=== PATIENT | female | born 1945 | race Caucasian/White ===

== ENCOUNTER → 2019-06-27 12:59 | Outpatient (BNVA) | payer MEDICARE, OTHER, SELFPAY | PROVIDERS: Family Provider Family Medicine; PCP Family Medicine; Referring Provider Internal Medicine Rheumatology; Visit Provider Internal Medicine Rheumatology | DX: M06.00 Rheumatoid arthritis without rheumatoid factor, unspecified site (principal); Z79.899 Other long term (current) drug therapy | CPT/HCPCS: 36415; 96365; 85025; 96374; A4222; J1745; J7050 ==

== ENCOUNTER 2019-06-27 13:00 | Outpatient (CLI) | payer MEDICARE, OTHER, SELFPAY | END 2019-06-27 13:01 | disposition home or self-care (01) | LOC: RHEOACUTE 07-15 14:36 | PROVIDERS: Family Provider Family Medicine; PCP Family Medicine; Visit Provider Internal Medicine Rheumatology | DX: Z76.89 Persons encountering health services in other specified circumstances (principal) | CPT/HCPCS: J1745; J7050 ==

== ENCOUNTER → 2019-08-27 12:28 | Outpatient (BNVA) | payer MEDICARE, OTHER, SELFPAY | PROVIDERS: Family Provider Family Medicine; PCP Family Medicine; Visit Provider Internal Medicine Rheumatology | DX: Z79.899 Other long term (current) drug therapy (principal); M02.30 Reiter's disease, unspecified site; H20.9 Unspecified iridocyclitis; Z86.19 Personal history of other infectious and parasitic diseases; M06.00 Rheumatoid arthritis without rheumatoid factor, unspecified site | CPT/HCPCS: 85025 ==

== ENCOUNTER 2019-08-27 13:02 | Outpatient (CLI) | payer MEDICARE, OTHER, SELFPAY ==
[2019-08-27 13:15] VITALS: BP 180/87; PULSE 65; RESP 18; TEMP 36.7; O2SAT 95
[2019-08-27 15:15] VITALS: BP 171/75; PULSE 64; TEMP 36.7
--- NOTE | 2019-08-27 15:31 | PC.NURSE ---
Infusion complete. IV DC'd. Site clear. 24g cath intact. Pressure dressing applied.
== END 2019-08-27 13:03 | disposition home or self-care (01) ==
LOC: RHEOACUTE 13:03
PROVIDERS: Family Provider Family Medicine; PCP Family Medicine; Visit Provider Internal Medicine Rheumatology
DX: M06.00 Rheumatoid arthritis without rheumatoid factor, unspecified site (principal); M02.30 Reiter's disease, unspecified site; Z79.899 Other long term (current) drug therapy; H20.9 Unspecified iridocyclitis; Z86.19 Personal history of other infectious and parasitic diseases; M19.90 Unspecified osteoarthritis, unspecified site
CPT/HCPCS: 36415; 80076; 82306; 82565; 85025; 85651; 86140; 86812; 96365; 96366; G0463; J1745; J7050

== ENCOUNTER 2019-10-29 12:47 | Outpatient (CLI) | payer MEDICARE, OTHER, SELFPAY ==
[2019-10-29 13:05] VITALS: BP 160/76; PULSE 71; RESP 16; TEMP 36.7; O2SAT 95
== END 2019-10-29 12:48 | disposition home or self-care (01) ==
LOC: RHEOACUTE 12:50
PROVIDERS: Family Provider Family Medicine; PCP Family Medicine; Visit Provider Internal Medicine Rheumatology
DX: M06.00 Rheumatoid arthritis without rheumatoid factor, unspecified site (principal); Z79.899 Other long term (current) drug therapy; Z11.59 Encounter for screening for other viral diseases; Z72.89 Other problems related to lifestyle
CPT/HCPCS: 36415; 80076; 82565; 85025; 85651; 86140; 86480; 86704; 86803; 87340; 96365; 96366; J1745; J7050

== ENCOUNTER → 2019-12-02 10:53 | Outpatient (BNVA) | payer MEDICARE, OTHER, SELFPAY | PROVIDERS: Family Provider Family Medicine; PCP Family Medicine; Visit Provider Internal Medicine Rheumatology | DX: M06.00 Rheumatoid arthritis without rheumatoid factor, unspecified site (principal); M19.90 Unspecified osteoarthritis, unspecified site; Z79.899 Other long term (current) drug therapy; H20.9 Unspecified iridocyclitis; M02.30 Reiter's disease, unspecified site | CPT/HCPCS: 99214 ==

== ENCOUNTER 2019-12-24 13:02 | Outpatient (CLI) | payer MEDICARE, OTHER, SELFPAY ==
[2019-12-24 13:24] VITALS: BP 154/84; PULSE 70; RESP 16; TEMP 36.6; O2SAT 95
[2019-12-24 15:10] VITALS: BP 155/78; PULSE 66; RESP 16; O2SAT 95
== END 2019-12-24 13:03 | disposition home or self-care (01) ==
LOC: RHEOACUTE 13:03
PROVIDERS: Family Provider Family Medicine; PCP Family Medicine; Visit Provider Internal Medicine Rheumatology
DX: M06.09 Rheumatoid arthritis without rheumatoid factor, multiple sites (principal)
CPT/HCPCS: 96365; 96366; J1745; J7050

== ENCOUNTER 2020-02-18 12:53 | Outpatient (CLI) | payer MEDICARE, OTHER, SELFPAY ==
[2020-02-18 13:02] VITALS: BP 166/87; PULSE 72; RESP 16; TEMP 36.7; O2SAT 97
[2020-02-18 13:41] VITALS: BMI 31.9
[2020-02-18 14:55] VITALS: BP 150/71; PULSE 65; RESP 16; O2SAT 96
--- NOTE | 2020-02-18 15:06 | PC.NURSE ---
HOME MED LIST REVIEWED AND CORRECTED. LIST PROVIDED TO PT
== END 2020-02-18 12:54 | disposition home or self-care (01) ==
LOC: RHEOACUTE 12:55
PROVIDERS: Family Provider Family Medicine; PCP Family Medicine; Visit Provider Internal Medicine Rheumatology
DX: Z79.899 Other long term (current) drug therapy (principal); M06.09 Rheumatoid arthritis without rheumatoid factor, multiple sites
CPT/HCPCS: 80076; 82565; 85025; 85651; 86140; 96365; 96366; J1745; J7050

== ENCOUNTER 2020-04-22 12:43 | Outpatient (CLI) | payer MEDICARE, OTHER, SELFPAY ==
[2020-04-22 12:50] VITALS: BP 151/81; PULSE 69; RESP 16; TEMP 36.8; O2SAT 96
[2020-04-22 13:14] VITALS: BMI 31.9
[2020-04-22 14:34] VITALS: BP 146/78; PULSE 80; RESP 16
== END 2020-04-22 12:44 | disposition home or self-care (01) ==
LOC: RHEOACUTE 12:44
PROVIDERS: Family Provider Family Medicine; PCP Family Medicine; Visit Provider Internal Medicine Rheumatology
DX: M06.09 Rheumatoid arthritis without rheumatoid factor, multiple sites (principal)
CPT/HCPCS: 96365; 96366; J1745; J7050

== ENCOUNTER → 2020-06-03 10:50 | Outpatient (BNVA) | payer MEDICARE, OTHER, SELFPAY | PROVIDERS: Family Provider Family Medicine; PCP Family Medicine; Visit Provider Internal Medicine Rheumatology | DX: M06.00 Rheumatoid arthritis without rheumatoid factor, unspecified site (principal); H20.9 Unspecified iridocyclitis; M02.30 Reiter's disease, unspecified site; M19.90 Unspecified osteoarthritis, unspecified site; Z79.899 Other long term (current) drug therapy | CPT/HCPCS: 99214 ==

== ENCOUNTER 2020-06-24 13:00 | Outpatient (CLI) | payer MEDICARE, OTHER, SELFPAY ==
[2020-06-24 13:10] VITALS: BP 158/82; PULSE 68; RESP 16; TEMP 36.1; O2SAT 97
--- NOTE | 2020-06-24 14:18 | PC.NURSE ---
1325 Labs obtained with IV start
[2020-06-24 14:24] VITALS: BMI 31.6
[2020-06-24 15:41] VITALS: BP 135/79; PULSE 66; RESP 16; O2SAT 98
== END 2020-06-24 13:01 | disposition home or self-care (01) ==
LOC: RHEOACUTE 13:01
PROVIDERS: Family Provider Family Medicine; PCP Family Medicine; Visit Provider Internal Medicine Rheumatology
DX: Z79.899 Other long term (current) drug therapy; M06.09 Rheumatoid arthritis without rheumatoid factor, multiple sites
CPT/HCPCS: 80076; 82565; 85025; 85651; 86140; 96365; 96366; J1745; J7050

== ENCOUNTER 2020-08-19 13:08 | Outpatient (CLI) | payer MEDICARE, OTHER, SELFPAY ==
[2020-08-19 13:45] VITALS: BP 155/79; PULSE 67; RESP 16; TEMP 37.3; O2SAT 96
[2020-08-19 14:08] LABS: Basophils # 0.1 10^3/uL (0.0-0.1); Basophils % 0.7 %; Eosinophils # 0.2 10^3/uL (0.0-0.8); Eosinophils % 3.1 %; Hematocrit 42.9 % (37.0-47.0); Hemoglobin 13.8 g/dL (11.5-15.3); Lymphocytes # 2.7 10^3/uL (0.8-4.8); Lymphocytes % 35.7 %; Mean Corpuscular HGB Conc 32.2 g/dL (30.0-36.0); Mean Corpuscular Hemoglobin 31.9 pg (28.0-34.0); Mean Corpuscular Volume 99.3 fL (81-99); Mean Platelet Volume 10.4 fL (7.4-10.4); Monocytes # 0.6 10^3/uL (0.2-0.9); Monocytes % 8.4 %; Neutrophils # 3.88 10^3/uL (1.8-7.7); Nucleated Red Blood Cells % 0 %; Platelet Count 210 10^3/cmm (130-400); Red Blood Count 4.32 10^6/uL (4.1-5.3); Red Cell Distribution Width 12.7 % (12.1-15.1); White Blood Count 7.5 10^3/uL (4.0-10.0)
[2020-08-19 14:40] LABS: Alanine Aminotransferase 15 U/L (0-33); Albumin Level 3.7 g/dL (3.5-5.2); Alkaline Phosphatase 77 IU/L (35-105); Aspartate Amino Transferase 26 U/L (0-32); C Reactive Protein 13.5 mg/L (0.0-4.9); Globulin 3.9 g/dL (1.3-4.6); Total Bilirubin 0.5 mg/dL (0.15-1.2); Total Protein 7.6 g/dL (6.6-8.7)
== END 2020-08-19 13:09 | disposition home or self-care (01) ==
PROVIDERS: Family Provider Family Medicine; PCP Family Medicine; Visit Provider Internal Medicine Rheumatology
DX: M06.9 Rheumatoid arthritis, unspecified (principal)
CPT/HCPCS: 80076; 82565; 85025; 86140; 96365; J1745; J7050

== ENCOUNTER 2020-10-14 12:42 | Outpatient (CLI) | payer MEDICARE, OTHER, SELFPAY ==
[2020-10-14 13:10] VITALS: BP 131/60; PULSE 84; RESP 16; TEMP 36.3; O2SAT 96
[2020-10-14 14:06] LABS: Basophils # 0.1 10^3/uL (0.0-0.1); Basophils % 0.7 %; Eosinophils # 0.2 10^3/uL (0.0-0.8); Eosinophils % 2.2 %; Hematocrit 42.7 % (37.0-47.0); Hemoglobin 13.5 g/dL (11.5-15.3); Lymphocytes # 2.2 10^3/uL (0.8-4.8); Lymphocytes % 29.9 %; Mean Corpuscular HGB Conc 31.6 g/dL (30.0-36.0); Mean Corpuscular Hemoglobin 31.4 pg (28.0-34.0); Mean Corpuscular Volume 99.3 fL (81-99); Mean Platelet Volume 10.4 fL (7.4-10.4); Monocytes # 0.7 10^3/uL (0.2-0.9); Monocytes % 8.8 %; Neutrophils # 4.29 10^3/uL (1.8-7.7); Neutrophils % 58.3 %; Nucleated Red Blood Cells % 0 %; Platelet Count 241 10^3/cmm (130-400); Red Cell Distribution Width 12.7 % (12.1-15.1); White Blood Count 7.4 10^3/uL (4.0-10.0)
[2020-10-14 14:32] LABS: Alanine Aminotransferase 14 U/L (0-33); Albumin Level 3.9 g/dL (3.5-5.2); Alkaline Phosphatase 77 IU/L (35-105); Aspartate Amino Transferase 26 U/L (0-32); C Reactive Protein 2.5 mg/L (0.0-4.9); Globulin 3.6 g/dL (1.3-4.6); Total Bilirubin 0.7 mg/dL (0.15-1.2); Total Protein 7.5 g/dL (6.6-8.7)
[2020-10-14 14:35] VITALS: BP 131/60; PULSE 65; RESP 16; TEMP 36.3; O2SAT 96
== END 2020-10-14 12:43 | disposition home or self-care (01) ==
PROVIDERS: Family Provider Family Medicine; PCP Family Medicine; Visit Provider Internal Medicine Rheumatology
DX: M06.09 Rheumatoid arthritis without rheumatoid factor, multiple sites (principal); Z79.899 Other long term (current) drug therapy
CPT/HCPCS: 80076; 82565; 85025; 86140; 96365; 96366; J1745; J7050

== ENCOUNTER → 2020-12-02 12:29 | Outpatient (BNVA) | payer MEDICARE, OTHER, SELFPAY | PROVIDERS: Family Provider Family Medicine; PCP Family Medicine; Visit Provider Internal Medicine Rheumatology | DX: M19.90 Unspecified osteoarthritis, unspecified site (principal); H20.9 Unspecified iridocyclitis; Z79.899 Other long term (current) drug therapy; Z96.642 Presence of left artificial hip joint | CPT/HCPCS: 99214 ==

== ENCOUNTER 2020-12-17 12:53 | Outpatient (CLI) | payer MEDICARE, OTHER, SELFPAY ==
[2020-12-17 13:16] VITALS: BP 127/62; PULSE 80; RESP 18; TEMP 36.5; O2SAT 96
[2020-12-17 14:00] LABS: Basophils % 0.4 %; Eosinophils # 0.1 10^3/uL (0.0-0.8); Eosinophils % 1.3 %; Hematocrit 41.9 % (37.0-47.0); Hemoglobin 13.3 g/dL (11.5-15.3); Lymphocytes # 2.9 10^3/uL (0.8-4.8); Lymphocytes % 27.5 %; Mean Corpuscular HGB Conc 31.7 g/dL (30.0-36.0); Mean Corpuscular Hemoglobin 31.8 pg (28.0-34.0); Mean Corpuscular Volume 100.2 fL (81-99); Mean Platelet Volume 10.1 fL (7.4-10.4); Monocytes # 0.9 10^3/uL (0.2-0.9); Monocytes % 8.9 %; Neutrophils # 6.42 10^3/uL (1.8-7.7); Neutrophils % 61.6 %; Nucleated Red Blood Cells % 0 %; Platelet Count 240 10^3/cmm (130-400); Red Blood Count 4.18 10^6/uL (4.1-5.3); Red Cell Distribution Width 13.5 % (12.1-15.1); White Blood Count 10.4 10^3/uL (4.0-10.0)
[2020-12-17 14:17] LABS: Alanine Aminotransferase 22 U/L (0-33); Albumin Level 3.7 g/dL (3.5-5.2); Alkaline Phosphatase 77 IU/L (35-105); Aspartate Amino Transferase 32 U/L (0-32); C Reactive Protein 4.7 mg/L (0.0-4.9); Globulin 3.8 g/dL (1.3-4.6); Total Bilirubin 0.5 mg/dL (0.15-1.2); Total Protein 7.5 g/dL (6.6-8.7)
[2020-12-17 14:30] VITALS: BP 135/72; PULSE 71; RESP 18; TEMP 37; O2SAT 97
== END 2020-12-17 12:54 | disposition home or self-care (01) ==
LOC: ONCMED 12:55
PROVIDERS: Family Provider Family Medicine; PCP Family Medicine; Referring Provider Internal Medicine Rheumatology; Visit Provider Internal Medicine Rheumatology
DX: M06.09 Rheumatoid arthritis without rheumatoid factor, multiple sites (principal)
CPT/HCPCS: 80076; 82565; 85025; 86140; 96365; J1745; J7050

== ENCOUNTER 2021-02-11 12:44 | Outpatient (CLI) | payer MEDICARE, OTHER, SELFPAY ==
[2021-02-11 12:55] VITALS: BP 131/62; PULSE 69; RESP 20; TEMP 36.3; O2SAT 96
[2021-02-11] MEDS: sodium chloride 0.9% 250 ML 75 ML IV (13:39)
[2021-02-11 13:59] LABS: Basophils # 0.1 10^3/uL (0.0-0.1); Basophils % 0.7 %; Eosinophils # 0.2 10^3/uL (0.0-0.8); Eosinophils % 2.5 %; Hematocrit 42.1 % (37.0-47.0); Lymphocytes % 29.4 %; Mean Corpuscular HGB Conc 33.3 g/dL (30.0-36.0); Mean Corpuscular Hemoglobin 32.9 pg (28.0-34.0); Mean Corpuscular Volume 98.8 fl (81-99); Mean Platelet Volume 10.4 fL (7.4-10.4); Monocytes # 0.6 10^3/uL (0.2-0.9); Neutrophils # 3.88 10^3/uL (1.8-7.7); Neutrophils % 58.3 %; Nucleated Red Blood Cells % 0 %; Platelet Count 210 10^3/cmm (130-400); Red Blood Count 4.26 10^6/uL (4.1-5.3); Red Cell Distribution Width 13.7 % (12.1-15.1); White Blood Count 6.7 10^3/uL (4.0-10.0)
[2021-02-11 14:31] LABS: Alanine Aminotransferase 15 U/L (0-33); Albumin Level 3.7 g/dL (3.5-5.2); Alkaline Phosphatase 79 IU/L (35-105); Aspartate Amino Transferase 23 U/L (0-32); Globulin 4.3 g/dL (1.3-4.6); Total Bilirubin 0.5 mg/dL (0.15-1.2)
[2021-02-11 14:51] VITALS: BP 134/78; PULSE 71; RESP 18; TEMP 36.3; O2SAT 96
== END 2021-02-11 12:45 | disposition home or self-care (01) ==
PROVIDERS: PCP Family Medicine; Visit Provider Internal Medicine Rheumatology
DX: M06.09 Rheumatoid arthritis without rheumatoid factor, multiple sites (principal)
CPT/HCPCS: 80076; 82565; 85025; 86140; 96365; J1745; J7050

== ENCOUNTER 2021-04-21 12:42 | Outpatient (CLI) | payer MEDICARE, OTHER, SELFPAY ==
[2021-04-21 12:55] VITALS: BP 125/77; PULSE 68; RESP 18; TEMP 36.3; O2SAT 98
[2021-04-21] MEDS: sodium chloride 0.9% 250 ML 50 ML IV (13:30)
[2021-04-21 13:41] LABS: Basophils % 0.6 %; Eosinophils # 0.1 10^3/uL (0.0-0.8); Eosinophils % 1.9 %; Hematocrit 44.1 % (37.0-47.0); Hemoglobin 14.5 g/dL (11.5-15.3); Lymphocytes # 2.1 10^3/uL (0.8-4.8); Lymphocytes % 32.8 %; Mean Corpuscular HGB Conc 32.9 g/dL (30.0-36.0); Mean Corpuscular Hemoglobin 33.6 pg (28.0-34.0); Mean Corpuscular Volume 102.3 fl (81-99); Mean Platelet Volume 9.5 fL (7.4-10.4); Monocytes # 0.6 10^3/uL (0.2-0.9); Monocytes % 9.6 %; Neutrophils # 3.55 10^3/uL (1.8-7.7); Neutrophils % 54.8 %; Nucleated Red Blood Cells % 0 %; Platelet Count 238 10^3/cmm (130-400); Red Blood Count 4.31 10^6/uL (4.1-5.3); Red Cell Distribution Width 12.4 % (12.1-15.1); White Blood Count 6.5 10^3/uL (4.0-10.0)
[2021-04-21 14:06] LABS: Alanine Aminotransferase 18 U/L (0-33); Albumin Level 3.9 g/dL (3.5-5.2); Alkaline Phosphatase 72 IU/L (35-105); Aspartate Amino Transferase 27 U/L (0-32); C Reactive Protein 1.2 mg/L (0.0-4.9); Globulin 3.8 g/dL (1.3-4.6); Total Bilirubin 0.5 mg/dL (0.15-1.2); Total Protein 7.7 g/dL (6.6-8.7)
[2021-04-21 14:43] VITALS: BP 134/62; PULSE 70; RESP 18; TEMP 36.5; O2SAT 98
== END 2021-04-21 12:43 | disposition home or self-care (01) ==
LOC: ONCMED 12:44
PROVIDERS: PCP Family Medicine; Visit Provider Internal Medicine Rheumatology
DX: M06.09 Rheumatoid arthritis without rheumatoid factor, multiple sites (principal); Z79.899 Other long term (current) drug therapy
CPT/HCPCS: 80076; 82565; 85025; 86140; 96365; J1745; J7050

== ENCOUNTER → 2021-06-07 14:31 | Outpatient (BNVA) | payer MEDICARE, OTHER, SELFPAY | PROVIDERS: PCP Family Medicine; Visit Provider Internal Medicine Rheumatology | DX: M06.00 Rheumatoid arthritis without rheumatoid factor, unspecified site (principal); Z79.899 Other long term (current) drug therapy; H20.023 Recurrent acute iridocyclitis, bilateral; M16.12 Unilateral primary osteoarthritis, left hip; Z96.642 Presence of left artificial hip joint; Z15.89 Genetic susceptibility to other disease; Z86.73 Personal history of transient ischemic attack (TIA), and cerebral infarction without residual deficits; Z71.89 Other specified counseling | CPT/HCPCS: 99214 ==

== ENCOUNTER 2021-06-16 12:41 | Outpatient (CLI) | payer MEDICARE, OTHER, SELFPAY ==
[2021-06-16 12:59] VITALS: BP 157/85; PULSE 62; RESP 18; TEMP 36.2; O2SAT 99
[2021-06-16] MEDS: sodium chloride 0.9% 250 ML 50 ML IV (13:22)
[2021-06-16 13:32] LABS: Basophils % 0.5 %; Eosinophils # 0.1 10^3/uL (0.0-0.8); Eosinophils % 1.7 %; Hematocrit 43.3 % (37.0-47.0); Hemoglobin 14.4 g/dL (11.5-15.3); Lymphocytes # 2.2 10^3/uL (0.8-4.8); Lymphocytes % 29.2 %; Mean Corpuscular HGB Conc 33.3 g/dL (30.0-36.0); Mean Corpuscular Volume 99.1 fl (81-99); Mean Platelet Volume 10.1 fL (7.4-10.4); Monocytes # 0.6 10^3/uL (0.2-0.9); Monocytes % 8.1 %; Neutrophils # 4.59 10^3/uL (1.8-7.7); Neutrophils % 60.2 %; Nucleated Red Blood Cells % 0 %; Platelet Count 246 10^3/cmm (130-400); Red Blood Count 4.37 10^6/uL (4.1-5.3); Red Cell Distribution Width 12.3 % (12.1-15.1); White Blood Count 7.6 10^3/uL (4.0-10.0)
[2021-06-16 13:53] LABS: Alanine Aminotransferase 17 U/L (0-33); Alkaline Phosphatase 77 IU/L (35-105); Aspartate Amino Transferase 29 U/L (0-32); C Reactive Protein 1.8 mg/L (0.0-4.9); Total Bilirubin 0.6 mg/dL (0.15-1.2)
[2021-06-16 14:49] VITALS: BP 153/71; PULSE 61; RESP 18; TEMP 36.3; O2SAT 99
== END 2021-06-16 12:42 | disposition home or self-care (01) ==
LOC: ONCMED 12:59
PROVIDERS: PCP Family Medicine; Visit Provider Internal Medicine Rheumatology
DX: M06.09 Rheumatoid arthritis without rheumatoid factor, multiple sites (principal); Z79.899 Other long term (current) drug therapy
CPT/HCPCS: 80076; 82565; 85025; 86140; 96365; J1745; J7050

== ENCOUNTER 2021-08-16 11:15 | Outpatient (CLI) | payer MEDICARE, OTHER, SELFPAY ==
[2021-08-16 11:32] VITALS: BP 160/85; PULSE 71; RESP 18; TEMP 36.6; O2SAT 99
[2021-08-16] MEDS: sodium chloride 0.9% 250 ML 50 ML IV (11:55)
[2021-08-16 11:59] LABS: Basophils # 0.1 10^3/uL (0.0-0.1); Basophils % 0.8 %; Eosinophils # 0.1 10^3/uL (0.0-0.8); Eosinophils % 1.8 %; Hematocrit 44.8 % (37.0-47.0); Hemoglobin 14.8 g/dL (11.5-15.3); Lymphocytes # 2.1 10^3/uL (0.8-4.8); Lymphocytes % 31.7 %; Mean Corpuscular Hemoglobin 32.2 pg (28.0-34.0); Mean Corpuscular Volume 97.6 fl (81-99); Mean Platelet Volume 9.8 fL (7.4-10.4); Monocytes # 0.6 10^3/uL (0.2-0.9); Monocytes % 8.9 %; Neutrophils # 3.73 10^3/uL (1.8-7.7); Neutrophils % 56.5 %; Nucleated Red Blood Cells % 0 %; Platelet Count 241 10^3/cmm (130-400); Red Blood Count 4.59 10^6/uL (4.1-5.3); Red Cell Distribution Width 12.5 % (12.1-15.1); White Blood Count 6.6 10^3/uL (4.0-10.0)
[2021-08-16 12:37] LABS: Alanine Aminotransferase 20 U/L (0-33); Alkaline Phosphatase 88 IU/L (35-105); Aspartate Amino Transferase 28 U/L (0-32); Globulin 4.3 g/dL (1.3-4.6); Total Bilirubin 0.4 mg/dL (0.15-1.2); Total Protein 8.3 g/dL (6.6-8.7)
[2021-08-16 13:19] VITALS: BP 139/83; PULSE 68; RESP 18; TEMP 36.8; O2SAT 99
== END 2021-08-16 11:16 | disposition home or self-care (01) ==
PROVIDERS: PCP Family Medicine; Referring Provider Internal Medicine Rheumatology; Visit Provider Internal Medicine Medical Oncology
DX: M06.09 Rheumatoid arthritis without rheumatoid factor, multiple sites (principal); Z79.899 Other long term (current) drug therapy
CPT/HCPCS: 80076; 82565; 85025; 86140; 96365; J1745; J7050

== ENCOUNTER 2021-10-11 09:45 | Outpatient (CLI) | payer MEDICARE, OTHER, SELFPAY ==
[2021-10-11 09:57] VITALS: BP 174/87; PULSE 67; RESP 18; TEMP 36.2; O2SAT 98
[2021-10-11 10:17] LABS: Basophils % 0.3 %; Eosinophils # 0.2 10^3/uL (0.0-0.8); Eosinophils % 1.7 %; Hematocrit 43.9 % (37.0-47.0); Hemoglobin 14.3 g/dL (11.5-15.3); Lymphocytes # 2.2 10^3/uL (0.8-4.8); Lymphocytes % 25.2 %; Mean Corpuscular HGB Conc 32.6 g/dL (30.0-36.0); Mean Corpuscular Hemoglobin 32.3 pg (28.0-34.0); Mean Corpuscular Volume 99.1 fl (81-99); Mean Platelet Volume 9.8 fL (7.4-10.4); Monocytes # 0.7 10^3/uL (0.2-0.9); Monocytes % 7.8 %; Neutrophils # 5.73 10^3/uL (1.8-7.7); Neutrophils % 64.7 %; Nucleated Red Blood Cells % 0 %; Platelet Count 216 10^3/cmm (130-400); Red Blood Count 4.43 10^6/uL (4.1-5.3); Red Cell Distribution Width 12.9 % (12.1-15.1); White Blood Count 8.9 10^3/uL (4.0-10.0)
[2021-10-11] MEDS: sodium chloride 0.9% 250 ML 50 ML IV (10:22)
[2021-10-11 10:43] LABS: Alanine Aminotransferase 13 U/L (0-33); Alkaline Phosphatase 88 IU/L (35-105); Aspartate Amino Transferase 27 U/L (0-32); C Reactive Protein 5.2 mg/L (0.0-4.9); Globulin 4.4 g/dL (1.3-4.6); Total Bilirubin 0.5 mg/dL (0.15-1.2); Total Protein 8.4 g/dL (6.6-8.7)
[2021-10-11 11:46] VITALS: BP 168/85; PULSE 64; RESP 18; TEMP 36.3; O2SAT 97
== END 2021-10-11 09:46 | disposition home or self-care (01) ==
PROVIDERS: PCP Family Medicine; Referring Provider Internal Medicine Rheumatology; Visit Provider Internal Medicine Rheumatology
DX: M06.09 Rheumatoid arthritis without rheumatoid factor, multiple sites (principal); Z79.899 Other long term (current) drug therapy
CPT/HCPCS: 80076; 82565; 85025; 86140; 96365; J1745; J7050

== ENCOUNTER → 2021-11-22 12:36 | Outpatient (BNVA) | payer MEDICARE, OTHER, SELFPAY | PROVIDERS: PCP Family Medicine; Visit Provider Internal Medicine Rheumatology | DX: M06.00 Rheumatoid arthritis without rheumatoid factor, unspecified site (principal); H20.9 Unspecified iridocyclitis; Z15.89 Genetic susceptibility to other disease; Z79.899 Other long term (current) drug therapy; Z96.642 Presence of left artificial hip joint; Z86.73 Personal history of transient ischemic attack (TIA), and cerebral infarction without residual deficits; Z71.89 Other specified counseling | CPT/HCPCS: 99214 ==

== ENCOUNTER 2021-12-06 10:48 | Outpatient (CLI) | payer MEDICARE, OTHER, SELFPAY ==
[2021-12-06 10:58] VITALS: BP 160/83; PULSE 71; RESP 18; TEMP 36.3; O2SAT 96
[2021-12-06 11:31] LABS: Basophils % 0.1 %; Eosinophils # 0.1 10^3/uL (0.0-0.8); Eosinophils % 0.4 %; Hematocrit 44.4 % (37.0-47.0); Hemoglobin 14.6 g/dL (11.5-15.3); Lymphocytes # 3.2 10^3/uL (0.8-4.8); Lymphocytes % 26.7 %; Mean Corpuscular HGB Conc 32.9 g/dL (30.0-36.0); Mean Corpuscular Volume 97.4 fl (81-99); Monocytes # 1.1 10^3/uL (0.2-0.9); Monocytes % 9.2 %; Neutrophils # 7.54 10^3/uL (1.8-7.7); Neutrophils % 63.3 %; Nucleated Red Blood Cells % 0 %; Platelet Count 266 10^3/cmm (130-400); Red Blood Count 4.56 10^6/uL (4.1-5.3); Red Cell Distribution Width 13.1 % (12.1-15.1); White Blood Count 11.9 10^3/uL (4.0-10.0)
[2021-12-06] MEDS: sodium chloride 0.9% 250 ML 50 ML IV (11:31)
[2021-12-06 11:40] LABS: Alanine Aminotransferase 33 U/L (0-33); Albumin Level 3.9 g/dL (3.5-5.2); Alkaline Phosphatase 74 IU/L (35-105); Aspartate Amino Transferase 33 U/L (0-32); Globulin 4.1 g/dL (1.3-4.6); Total Bilirubin 0.3 mg/dL (0.15-1.2)
[2021-12-06 12:21] LABS: Erythrocyte Sedimentation Rate 14 mm/hr (0-15)
[2021-12-06 12:53] VITALS: BP 150/76; PULSE 62; RESP 18; TEMP 36.7; O2SAT 98
== END 2021-12-06 10:49 | disposition home or self-care (01) ==
PROVIDERS: PCP Family Medicine; Referring Provider Internal Medicine Rheumatology; Visit Provider Internal Medicine Rheumatology
DX: M06.9 Rheumatoid arthritis, unspecified (principal); M45.9 Ankylosing spondylitis of unspecified sites in spine
CPT/HCPCS: 80076; 82565; 85025; 85651; 96365; J1745; J7050

== ENCOUNTER 2022-01-31 12:55 | Outpatient (CLI) | payer MEDICARE, OTHER, SELFPAY ==
[2022-01-31 13:06] VITALS: BP 135/73; PULSE 68; RESP 18; TEMP 36.3; O2SAT 96
[2022-01-31 13:31] LABS: Basophils % 0.5 %; Eosinophils # 0.2 10^3/uL (0.0-0.8); Eosinophils % 1.8 %; Hematocrit 39.9 % (37.0-47.0); Hemoglobin 13.2 g/dL (11.5-15.3); Lymphocytes # 2.3 10^3/uL (0.8-4.8); Lymphocytes % 28.4 %; Mean Corpuscular HGB Conc 33.1 g/dL (30.0-36.0); Mean Corpuscular Hemoglobin 32.8 pg (28.0-34.0); Mean Platelet Volume 9.7 fL (7.4-10.4); Monocytes # 0.7 10^3/uL (0.2-0.9); Monocytes % 7.9 %; Neutrophils # 5.05 10^3/uL (1.8-7.7); Neutrophils % 61.2 %; Nucleated Red Blood Cells % 0 %; Platelet Count 277 10^3/cmm (130-400); Red Blood Count 4.03 10^6/uL (4.1-5.3); Red Cell Distribution Width 12.7 % (12.1-15.1); White Blood Count 8.3 10^3/uL (4.0-10.0)
[2022-01-31] MEDS: sodium chloride 0.9% 250 ML 50 ML IV (13:35)
[2022-01-31 13:39] LABS: Erythrocyte Sedimentation Rate 35 mm/hr (0-15)
[2022-01-31 13:58] LABS: Alanine Aminotransferase 13 U/L (0-33); Albumin Level 3.7 g/dL (3.5-5.2); Alkaline Phosphatase 77 U/L (35-105); Aspartate Amino Transferase 25 U/L (0-32); Globulin 4.3 g/dL (1.3-4.6); Total Bilirubin 0.3 mg/dL (0.15-1.2)
[2022-01-31 14:57] VITALS: BP 152/77; PULSE 63; RESP 18; TEMP 36.2; O2SAT 96
== END 2022-01-31 12:56 | disposition home or self-care (01) ==
PROVIDERS: PCP Family Medicine; Visit Provider Internal Medicine Rheumatology
DX: M06.9 Rheumatoid arthritis, unspecified (principal); Z79.899 Other long term (current) drug therapy
CPT/HCPCS: 80076; 82565; 85025; 85651; 96365; J1745; J7050

== ENCOUNTER 2022-03-28 12:40 | Outpatient (CLI) | payer MEDICARE, OTHER, SELFPAY ==
[2022-03-28 12:53] VITALS: BP 143/72; PULSE 77; RESP 18; TEMP 36.4; O2SAT 96
[2022-03-28 13:10] LABS: Basophils % 0.2 %; Eosinophils # 0.1 10^3/uL (0.0-0.8); Eosinophils % 0.5 %; Hematocrit 38.9 % (37.0-47.0); Hemoglobin 12.7 g/dL (11.5-15.3); Lymphocytes % 31.7 %; Mean Corpuscular HGB Conc 32.6 g/dL (30.0-36.0); Mean Corpuscular Hemoglobin 32.2 pg (28.0-34.0); Mean Corpuscular Volume 98.7 fl (81-99); Monocytes % 6.1 %; Neutrophils # 9.66 10^3/uL (1.8-7.7); Neutrophils % 60.9 %; Nucleated Red Blood Cells % 0 %; Platelet Count 365 10^3/cmm (130-400); Red Blood Count 3.94 10^6/uL (4.1-5.3); Red Cell Distribution Width 12.6 % (12.1-15.1); White Blood Count 15.8 10^3/uL (4.0-10.0)
[2022-03-28] MEDS: sodium chloride 0.9% 250 ML 50 ML IV (13:17)
[2022-03-28 13:36] LABS: Alanine Aminotransferase 20 U/L (0-33); Albumin Level 3.2 g/dL (3.5-5.2); Alkaline Phosphatase 72 U/L (35-105); Globulin 4.4 g/dL (1.3-4.6); Total Bilirubin 0.2 mg/dL (0.15-1.2); Total Protein 7.6 g/dL (6.6-8.7)
[2022-03-28 13:37] LABS: Erythrocyte Sedimentation Rate 39 mm/hr (0-15)
[2022-03-28 13:39] LABS: Aspartate Amino Transferase 24 U/L (0-32)
[2022-03-28 15:02] VITALS: BP 148/77; PULSE 69; RESP 18; TEMP 36.8; O2SAT 96
== END 2022-03-28 12:41 | disposition home or self-care (01) ==
PROVIDERS: PCP Family Medicine; Visit Provider Internal Medicine Rheumatology
DX: M06.9 Rheumatoid arthritis, unspecified (principal)
CPT/HCPCS: 80076; 82565; 85025; 85651; 96365; A4222; J1745; J7050

== ENCOUNTER 2022-05-23 12:55 | Outpatient (CLI) | payer MEDICARE, OTHER, SELFPAY ==
[2022-05-23 13:34] VITALS: BP 107/64; PULSE 77; RESP 18; TEMP 37.2; O2SAT 95
[2022-05-23] MEDS: sodium chloride 0.9% 250 ML 50 ML IV (13:47)
[2022-05-23 13:52] LABS: Basophils % 0.1 %; Hematocrit 33.8 % (37.0-47.0); Hemoglobin 10.6 g/dL (11.5-15.3); Lymphocytes # 0.7 10^3/uL (0.8-4.8); Lymphocytes % 5.6 %; Mean Corpuscular HGB Conc 31.4 g/dL (30.0-36.0); Mean Corpuscular Hemoglobin 30.4 pg (28.0-34.0); Mean Corpuscular Volume 96.8 fl (81-99); Mean Platelet Volume 9.1 fL (7.4-10.4); Monocytes # 0.6 10^3/uL (0.2-0.9); Monocytes % 5.1 %; Neutrophils % 88.7 %; Nucleated Red Blood Cells % 0 %; Platelet Count 411 10^3/cmm (130-400); Red Blood Count 3.49 10^6/uL (4.1-5.3); Red Cell Distribution Width 13.7 % (12.1-15.1); White Blood Count 12.1 10^3/uL (4.0-10.0)
[2022-05-23 14:09] LABS: Alanine Aminotransferase 23 U/L (0-33); Albumin Level 2.9 g/dL (3.5-5.2); Alkaline Phosphatase 72 U/L (35-105); Aspartate Amino Transferase 25 U/L (0-32); C Reactive Protein 170.9 mg/L (0.0-4.9); Globulin 5.1 g/dL (1.3-4.6); Total Bilirubin 0.4 mg/dL (0.15-1.2)
[2022-05-23 15:36] VITALS: BP 107/63; PULSE 70; RESP 18; TEMP 36.7; O2SAT 93
== END 2022-05-23 12:56 | disposition home or self-care (01) ==
LOC: ONCMED 12:56
PROVIDERS: PCP Family Medicine; Visit Provider Internal Medicine Rheumatology
DX: M06.9 Rheumatoid arthritis, unspecified (principal)
CPT/HCPCS: 80076; 82565; 85025; 86140; 96365; A4222; J1745; J7050

== ENCOUNTER 2022-07-04 12:48 | Outpatient (CLI) | payer MEDICARE, OTHER, SELFPAY ==
[2022-07-04 13:11] VITALS: BP 141/76; PULSE 70; RESP 18; TEMP 36.3; O2SAT 99
[2022-07-04 13:40] LABS: Basophils % 0.5 %; Eosinophils # 0.1 10^3/uL (0.0-0.8); Eosinophils % 1.2 %; Hematocrit 38.5 % (37.0-47.0); Hemoglobin 12.3 g/dL (11.5-15.3); Lymphocytes # 3.5 10^3/uL (0.8-4.8); Lymphocytes % 40.5 %; Mean Corpuscular HGB Conc 31.9 g/dL (30.0-36.0); Mean Corpuscular Hemoglobin 31.5 pg (28.0-34.0); Mean Corpuscular Volume 98.5 fl (81-99); Mean Platelet Volume 9.9 fL (7.4-10.4); Monocytes # 0.8 10^3/uL (0.2-0.9); Monocytes % 9.6 %; Neutrophils # 4.12 10^3/uL (1.8-7.7); Neutrophils % 48.1 %; Nucleated Red Blood Cells % 0 %; Platelet Count 275 10^3/cmm (130-400); Red Blood Count 3.91 10^6/uL (4.1-5.3); Red Cell Distribution Width 15.2 % (12.1-15.1); White Blood Count 8.6 10^3/uL (4.0-10.0)
[2022-07-04] MEDS: sodium chloride 0.9% 250 ML 50 ML IV (13:43)
[2022-07-04 13:47] LABS: Erythrocyte Sedimentation Rate 31 mm/hr (0-15)
[2022-07-04 14:03] LABS: Alanine Aminotransferase 10 U/L (0-33); Albumin Level 3.8 g/dL (3.5-5.2); Alkaline Phosphatase 77 U/L (35-105); Aspartate Amino Transferase 23 U/L (0-32); Globulin 4.3 g/dL (1.3-4.6); Total Bilirubin 0.4 mg/dL (0.15-1.2); Total Protein 8.1 g/dL (6.6-8.7)
--- NOTE | 2022-07-04 14:23 | PC.NURSE ---
Patient presented to the clinic for her Remicade infusion. She stated that she was recovering from a recent UTI, and that she had taken her last dose of antibiotics today. I spoke with Dr. Cabral's office, and per their office, if patient is asymptomatic, we may proceed with her infusion. She states that she is asymptomatic today. We will proceed with infusion. dh
[2022-07-04 15:10] VITALS: BP 162/76; PULSE 85; RESP 18; TEMP 36.4; O2SAT 99
== END 2022-07-04 12:49 | disposition home or self-care (01) ==
LOC: ONCMED 12:48
PROVIDERS: PCP Family Medicine; Visit Provider Internal Medicine Rheumatology
DX: M06.9 Rheumatoid arthritis, unspecified (principal); Z79.899 Other long term (current) drug therapy
CPT/HCPCS: 80076; 82565; 85025; 85651; 96365; A4222; J1745; J7050

== ENCOUNTER 2022-08-15 12:41 | Oncology outpatient (recurring) (ONCR) | payer MEDICARE, OTHER, SELFPAY ==
[2022-08-15 13:11] LABS: Basophils % 0.6 %; Eosinophils # 0.1 10^3/uL (0.0-0.8); Eosinophils % 1.5 %; Hematocrit 39.6 % (37.0-47.0); Hemoglobin 12.7 g/dL (11.5-15.3); Lymphocytes # 2.9 10^3/uL (0.8-4.8); Lymphocytes % 40.4 %; Mean Corpuscular HGB Conc 32.1 g/dL (30.0-36.0); Mean Corpuscular Hemoglobin 31.4 pg (28.0-34.0); Mean Corpuscular Volume 97.8 fl (81-99); Mean Platelet Volume 10.2 fL (7.4-10.4); Monocytes # 0.6 10^3/uL (0.2-0.9); Monocytes % 8.7 %; Neutrophils # 3.45 10^3/uL (1.8-7.7); Neutrophils % 48.7 %; Nucleated Red Blood Cells % 0 %; Platelet Count 234 10^3/cmm (130-400); Red Blood Count 4.05 10^6/uL (4.1-5.3); Red Cell Distribution Width 14.2 % (12.1-15.1); White Blood Count 7.1 10^3/uL (4.0-10.0)
[2022-08-15 13:12] VITALS: BP 113/73; PULSE 70; RESP 18; TEMP 36.1; O2SAT 95
[2022-08-15 13:14] LABS: Erythrocyte Sedimentation Rate 17 mm/hr (0-15)
[2022-08-15] MEDS: sodium chloride 0.9% 250 ML 50 ML IV (13:24)
[2022-08-15 13:35] LABS: Alanine Aminotransferase 14 U/L (0-33); Albumin Level 3.7 g/dL (3.5-5.2); Alkaline Phosphatase 73 U/L (35-105); Aspartate Amino Transferase 28 U/L (0-32); Globulin 3.9 g/dL (1.3-4.6); Total Bilirubin 0.4 mg/dL (0.15-1.2); Total Protein 7.6 g/dL (6.6-8.7)
[2022-08-15 14:57] VITALS: BP 159/84; PULSE 67; RESP 18; TEMP 36.6; O2SAT 97
== END 2022-08-16 23:59 | disposition home or self-care (01) ==
PROVIDERS: Internal Medicine Rheumatology; PCP Family Medicine; Visit Provider Family Medicine
DX: M06.9 Rheumatoid arthritis, unspecified (principal); Z79.899 Other long term (current) drug therapy
CPT/HCPCS: 80076; 82565; 85025; 85651; 96365; J1745; J7050

== ENCOUNTER 2022-09-26 12:40 | Oncology outpatient (recurring) (ONCR) | payer MEDICARE, OTHER, SELFPAY ==
[2022-09-26 13:07] VITALS: BP 138/67; PULSE 63; RESP 18; TEMP 36.8; O2SAT 98
[2022-09-26 13:32] LABS: Basophils % 0.5 %; Eosinophils # 0.1 10^3/uL (0.0-0.8); Eosinophils % 1.5 %; Hematocrit 40.2 % (37.0-47.0); Hemoglobin 13.1 g/dL (11.5-15.3); Lymphocytes # 2.6 10^3/uL (0.8-4.8); Lymphocytes % 34.9 %; Mean Corpuscular HGB Conc 32.6 g/dL (30.0-36.0); Mean Corpuscular Hemoglobin 31.6 pg (28.0-34.0); Mean Corpuscular Volume 97.1 fl (81-99); Mean Platelet Volume 10.1 fL (7.4-10.4); Monocytes # 0.6 10^3/uL (0.2-0.9); Monocytes % 7.7 %; Neutrophils # 4.15 10^3/uL (1.8-7.7); Neutrophils % 55.1 %; Nucleated Red Blood Cells % 0 %; Platelet Count 221 10^3/cmm (130-400); Red Blood Count 4.14 10^6/uL (4.1-5.3); Red Cell Distribution Width 12.9 % (12.1-15.1); White Blood Count 7.5 10^3/uL (4.0-10.0)
[2022-09-26 13:43] LABS: Alanine Aminotransferase 15 U/L (0-33); Albumin Level 3.7 g/dL (3.5-5.2); Alkaline Phosphatase 64 U/L (35-105); Aspartate Amino Transferase 25 U/L (0-32); Blood Urea Nitrogen 20 mg/dL (8-23); Carbon Dioxide 28 mmol/L (22-29); Chloride 99 mmol/L (98-107); Creatinine Clr Calc Pharmacy 55.5702; Globulin 3.9 g/dL (1.3-4.6); Glucose 79 mg/dL (65-115); Osmolality Calculated 286 mOsm/kg (285-295); Sodium 137 mmol/L (136-145); Total Bilirubin 0.3 mg/dL (0.15-1.2); Total Protein 7.6 g/dL (6.6-8.7)
[2022-09-26 14:07] LABS: Anion Gap 13.6 (5-19); Potassium 3.6 mmol/L (3.5-5.1)
[2022-09-26 14:57] VITALS: BP 146/68; PULSE 79; RESP 18; TEMP 36.6; O2SAT 97
[2022-09-28 10:45] LABS: Erythrocyte Sedimentation Rate 19 mm/hr (0-15)
== END 2022-10-16 23:59 | disposition home or self-care (01) ==
PROVIDERS: Internal Medicine Rheumatology; PCP Family Medicine; Visit Provider Family Medicine
DX: M06.9 Rheumatoid arthritis, unspecified (principal)
CPT/HCPCS: 80053; 85025; 85651; 96365; 96413; J1745; J7050

== ENCOUNTER 2022-11-21 13:08 | Oncology outpatient (recurring) (ONCR) | payer MEDICARE, OTHER, SELFPAY ==
[2022-11-21 13:28] VITALS: BMI 28.4
[2022-11-21 13:59] LABS: Basophils # 0.1 10^3/uL (0.0-0.1); Basophils % 0.8 %; Eosinophils # 0.1 10^3/uL (0.0-0.8); Eosinophils % 1.8 %; Hematocrit 38.1 % (37.0-47.0); Hemoglobin 12.5 g/dL (11.5-15.3); Lymphocytes # 2.2 10^3/uL (0.8-4.8); Lymphocytes % 33.5 %; Mean Corpuscular HGB Conc 32.8 g/dL (30.0-36.0); Mean Corpuscular Hemoglobin 32.1 pg (28.0-34.0); Mean Corpuscular Volume 97.9 fl (81-99); Monocytes # 0.6 10^3/uL (0.2-0.9); Monocytes % 9.4 %; Neutrophils # 3.61 10^3/uL (1.8-7.7); Neutrophils % 54.3 %; Nucleated Red Blood Cells % 0 %; Platelet Count 196 10^3/cmm (130-400); Red Blood Count 3.89 10^6/uL (4.1-5.3); Red Cell Distribution Width 13.2 % (12.1-15.1); White Blood Count 6.6 10^3/uL (4.0-10.0)
[2022-11-21 14:11] LABS: Erythrocyte Sedimentation Rate 15 mm/hr (0-15)
[2022-11-21 14:14] LABS: Alanine Aminotransferase 12 U/L (0-33); Albumin Level 3.8 g/dL (3.5-5.2); Alkaline Phosphatase 64 U/L (35-105); Aspartate Amino Transferase 27 U/L (0-32); Globulin 3.5 g/dL (1.3-4.6); Total Bilirubin 0.4 mg/dL (0.15-1.2); Total Protein 7.3 g/dL (6.6-8.7)
[2022-11-21 14:20] VITALS: BP 145/75; PULSE 61; RESP 16; TEMP 36.7; O2SAT 98
[2022-11-21 15:46] VITALS: BP 163/87; PULSE 74; RESP 18; TEMP 36.3; O2SAT 100
== END 2022-12-16 23:59 | disposition home or self-care (01) ==
PROVIDERS: Internal Medicine Rheumatology; PCP Family Medicine; Visit Provider Family Medicine
DX: M06.9 Rheumatoid arthritis, unspecified (principal)
CPT/HCPCS: 80076; 82565; 85025; 85651; 96365; J1745; J7050

== ENCOUNTER → 2022-11-28 12:29 | Outpatient (BNVA) | payer MEDICARE, OTHER, SELFPAY | PROVIDERS: PCP Family Medicine; Visit Provider Internal Medicine | DX: R07.9 Chest pain, unspecified (principal); I34.0 Nonrheumatic mitral (valve) insufficiency; I50.30 Unspecified diastolic (congestive) heart failure | CPT/HCPCS: 93005; 99204 ==

== ENCOUNTER 2023-01-16 13:02 | Oncology outpatient (recurring) (ONCR) | payer MEDICARE, OTHER, SELFPAY ==
[2023-01-16 13:24] VITALS: BP 145/68; PULSE 62; RESP 18; TEMP 36; O2SAT 95
[2023-01-16 14:02] LABS: Basophils % 0.5 %; Eosinophils # 0.2 10^3/uL (0.0-0.8); Eosinophils % 1.9 %; Hemoglobin 13.1 g/dL (11.5-15.3); Lymphocytes # 2.8 10^3/uL (0.8-4.8); Lymphocytes % 36.2 %; Mean Corpuscular HGB Conc 32.8 g/dL (30.0-36.0); Mean Corpuscular Hemoglobin 32.1 pg (28.0-34.0); Mean Platelet Volume 10.4 fL (7.4-10.4); Monocytes # 0.7 10^3/uL (0.2-0.9); Monocytes % 8.8 %; Neutrophils # 4.02 10^3/uL (1.8-7.7); Neutrophils % 52.3 %; Nucleated Red Blood Cells % 0 %; Platelet Count 203 10^3/cmm (130-400); Red Blood Count 4.08 10^6/uL (4.1-5.3); Red Cell Distribution Width 13.1 % (12.1-15.1); White Blood Count 7.7 10^3/uL (4.0-10.0)
[2023-01-16 14:07] LABS: Erythrocyte Sedimentation Rate 11 mm/hr (0-15)
[2023-01-16 15:00] VITALS: BP 162/79; PULSE 64; RESP 18; TEMP 36; O2SAT 98
--- NOTE | 2023-01-16 15:29 | PC.NURSE ---
Patient refused all premeds and primary in line of normal saline.
[2023-01-16 15:50] LABS: Alanine Aminotransferase 12 U/L (0-33); Albumin Level 3.7 g/dL (3.5-5.2); Alkaline Phosphatase 68 U/L (35-105); Aspartate Amino Transferase 25 U/L (0-32); Globulin 3.4 g/dL (1.3-4.6); Total Bilirubin 0.5 mg/dL (0.15-1.2); Total Protein 7.1 g/dL (6.6-8.7)
== END 2023-01-16 23:59 | disposition home or self-care (01) ==
PROVIDERS: Internal Medicine Rheumatology; PCP Family Medicine; Visit Provider Family Medicine
DX: M19.90 Unspecified osteoarthritis, unspecified site (principal); M06.9 Rheumatoid arthritis, unspecified; Z79.899 Other long term (current) drug therapy
CPT/HCPCS: 80076; 82565; 85025; 85651; 96413; A4222; J1745; J7050

== ENCOUNTER → 2023-02-08 14:37 | Outpatient (BNVA) | payer MEDICARE, OTHER, SELFPAY | PROVIDERS: PCP Family Medicine; Visit Provider Internal Medicine Rheumatology | DX: H20.9 Unspecified iridocyclitis (principal); Z79.899 Other long term (current) drug therapy; Z71.89 Other specified counseling | CPT/HCPCS: 99214 ==

== ENCOUNTER 2023-03-14 12:54 | Oncology outpatient (recurring) (ONCR) | payer MEDICARE, OTHER, SELFPAY ==
[2023-03-14 13:20] VITALS: BP 158/67; PULSE 70; RESP 17; TEMP 37.1; O2SAT 97
[2023-03-14 13:33] LABS: Basophils % 0.4 %; Eosinophils # 0.4 10^3/uL (0.0-0.8); Hematocrit 41.5 % (36-47); Lymphocytes # 2.2 10^3/uL (0.8-4.8); Mean Corpuscular HGB Conc 32.8 g/dL (30-55); Mean Corpuscular Hemoglobin 32.1 pg (27-33); Mean Corpuscular Volume 97.9 fl (85-98); Mean Platelet Volume 9.8 fL (7.4-10.4); Monocytes # 0.7 10^3/uL (0.2-0.9); Monocytes % 7.4 %; Neutrophils # 5.84 10^3/uL (1.8-7.7); Nucleated Red Blood Cells % 0 %; Platelet Count 231 10^3/cmm (157-399); Red Blood Count 4.24 10^6/uL (3.85-5.65); Red Cell Distribution Width 13.1 % (12.1-15.1); White Blood Count 9.15 10^3/uL (3.29-11.43)
[2023-03-14 13:54] LABS: Erythrocyte Sedimentation Rate 19 mm/hr (0-15)
[2023-03-14 14:01] LABS: Alanine Aminotransferase 14 U/L (0-33); Albumin Level 3.9 g/dL (3.5-5.2); Alkaline Phosphatase 70 U/L (35-105); Aspartate Amino Transferase 26 U/L (0-32); Globulin 3.9 g/dL (1.3-4.6); Total Bilirubin 0.5 mg/dL (0.15-1.2); Total Protein 7.8 g/dL (6.6-8.7)
[2023-03-14 15:24] VITALS: BP 144/75; PULSE 68; RESP 16; TEMP 36.6; O2SAT 98
== END 2023-03-18 23:59 | disposition home or self-care (01) ==
PROVIDERS: Internal Medicine Rheumatology; PCP Family Medicine; Visit Provider Family Medicine
DX: M06.9 Rheumatoid arthritis, unspecified (principal); Z53.9 Procedure and treatment not carried out, unspecified reason
CPT/HCPCS: 80076; 82565; 85025; 85651; 86140; 96413; J7050; Q5104

== ENCOUNTER 2023-05-09 12:50 | Oncology outpatient (recurring) (ONCR) | payer MEDICARE, OTHER, SELFPAY ==
[2023-05-09 13:20] LABS: Basophils % 0.5 %; Eosinophils # 0.2 10^3/uL (0.0-0.8); Hematocrit 42.2 % (36-47); Lymphocytes % 36.6 %; Mean Corpuscular HGB Conc 32.9 g/dL (30-55); Mean Corpuscular Hemoglobin 32.6 pg (27-33); Mean Corpuscular Volume 99.1 fl (85-98); Mean Platelet Volume 9.6 fL (7.4-10.4); Monocytes # 0.7 10^3/uL (0.2-0.9); Monocytes % 9.1 %; Neutrophils # 4.19 10^3/uL (1.8-7.7); Neutrophils % 51.7 %; Nucleated Red Blood Cells % 0 %; Platelet Count 224 10^3/cmm (157-399); Red Blood Count 4.26 10^6/uL (3.85-5.65); Red Cell Distribution Width 12.9 % (12.1-15.1); White Blood Count 8.11 10^3/uL (3.29-11.43)
[2023-05-09 13:46] LABS: Alanine Aminotransferase 15 U/L (0-33); Alkaline Phosphatase 73 U/L (35-105); Aspartate Amino Transferase 27 U/L (0-32); Globulin 4.1 g/dL (1.3-4.6); Total Bilirubin 0.4 mg/dL (0.15-1.2); Total Protein 8.1 g/dL (6.6-8.7)
[2023-05-09 13:47] LABS: Erythrocyte Sedimentation Rate 8 mm/hr (0-15)
[2023-05-09 15:10] VITALS: BP 158/76; PULSE 70; RESP 17; TEMP 36.2; O2SAT 97
== END 2023-05-18 23:59 | disposition home or self-care (01) ==
LOC: ONCMED 12:50
PROVIDERS: Internal Medicine Rheumatology; PCP Family Medicine; Visit Provider Family Medicine
DX: M06.9 Rheumatoid arthritis, unspecified (principal)
CPT/HCPCS: 80076; 82565; 85025; 85651; 86140; 96413; J7050; Q5104

== ENCOUNTER 2023-07-05 12:51 | Oncology outpatient (recurring) (ONCR) | payer MEDICARE, SELFPAY ==
[2023-07-05 13:02] VITALS: BP 138/71; PULSE 73; RESP 17; TEMP 35.8; O2SAT 98
[2023-07-05 13:29] VITALS: BMI 28.7
[2023-07-05 13:34] LABS: Basophils # 0.1 10^3/uL (0.0-0.1); Basophils % 0.7 %; Eosinophils # 0.1 10^3/uL (0.0-0.8); Eosinophils % 1.8 %; Hematocrit 43.2 % (36-47); Lymphocytes # 2.4 10^3/uL (0.8-4.8); Lymphocytes % 32.3 %; Mean Corpuscular HGB Conc 33.1 g/dL (30-55); Mean Corpuscular Hemoglobin 32.6 pg (27-33); Mean Corpuscular Volume 98.4 fl (85-98); Mean Platelet Volume 9.9 fL (7.4-10.4); Monocytes # 0.5 10^3/uL (0.2-0.9); Monocytes % 7.1 %; Neutrophils # 4.23 10^3/uL (1.8-7.7); Nucleated Red Blood Cells % 0 %; Platelet Count 225 10^3/cmm (157-399); Red Blood Count 4.39 10^6/uL (3.85-5.65); Red Cell Distribution Width 12.4 % (12.1-15.1)
[2023-07-05 13:42] LABS: Erythrocyte Sedimentation Rate 10 mm/hr (0-15)
[2023-07-05 13:44] LABS: Alanine Aminotransferase 15 U/L (0-33); Albumin Level 3.9 g/dL (3.5-5.2); Alkaline Phosphatase 73 U/L (35-105); Aspartate Amino Transferase 27 U/L (0-32); Globulin 4.2 g/dL (1.3-4.6); Total Bilirubin 0.5 mg/dL (0.15-1.2); Total Protein 8.1 g/dL (6.6-8.7)
[2023-07-05 15:25] VITALS: BP 137/79; PULSE 75; RESP 17; TEMP 36.4; O2SAT 93
== END 2023-07-19 23:59 | disposition home or self-care (01) ==
PROVIDERS: Internal Medicine Rheumatology; PCP Family Medicine; Visit Provider Family Medicine
DX: M06.00 Rheumatoid arthritis without rheumatoid factor, unspecified site (principal); Z53.9 Procedure and treatment not carried out, unspecified reason
CPT/HCPCS: 80076; 82565; 85025; 85651; 86140; 96365; J7050; Q5104

== ENCOUNTER → 2023-08-28 10:01 | Outpatient (BNVA) | payer MEDICARE, SELFPAY | PROVIDERS: PCP Family Medicine; Visit Provider Nurse Practitioner Family | DX: I34.0 Nonrheumatic mitral (valve) insufficiency (principal) | CPT/HCPCS: 99214 ==

== ENCOUNTER 2023-08-30 11:53 | Oncology outpatient (recurring) (ONCR) | payer MEDICARE, SELFPAY ==
[2023-08-30] MEDS: INFLIXIMAB AXXQ IV (12:55)
[2023-08-30] MEDS: SODIUM CHLORIDE 0.9% IV (12:55)
[2023-08-30 13:09] VITALS: BP 114/68; PULSE 63; TEMP 36.2; O2SAT 90
[2023-08-30 13:11] LABS: Basophils % 0.3 %; Eosinophils # 0.1 10^3/uL (0.0-0.8); Eosinophils % 1.9 %; Hematocrit 39.5 % (36-47); Lymphocytes # 2.5 10^3/uL (0.8-4.8); Lymphocytes % 38.3 %; Mean Corpuscular HGB Conc 33.4 g/dL (30-55); Mean Corpuscular Volume 98.8 fl (85-98); Mean Platelet Volume 9.8 fL (7.4-10.4); Monocytes # 0.6 10^3/uL (0.2-0.9); Monocytes % 9.7 %; Neutrophils # 3.17 10^3/uL (1.8-7.7); Neutrophils % 49.6 %; Nucleated Red Blood Cells % 0 %; Platelet Count 217 10^3/cmm (157-399); Red Cell Distribution Width 12.9 % (12.1-15.1); White Blood Count 6.39 10^3/uL (3.29-11.43)
[2023-08-30 13:23] LABS: Erythrocyte Sedimentation Rate 9 mm/hr (0-15)
[2023-08-30 13:37] LABS: Alanine Aminotransferase 14 U/L (0-33); Albumin Level 3.6 g/dL (3.5-5.2); Alkaline Phosphatase 61 U/L (35-105); Aspartate Amino Transferase 29 U/L (0-32); Globulin 3.4 g/dL (1.3-4.6); Total Bilirubin 0.6 mg/dL (0.15-1.2)
[2023-08-30 14:01] VITALS: BP 144/69; PULSE 58; TEMP 36.1; O2SAT 90
== END 2023-09-17 23:59 | disposition home or self-care (01) ==
LOC: ONCMED 11:54
PROVIDERS: Internal Medicine Rheumatology; PCP Family Medicine; Visit Provider Family Medicine
DX: M06.00 Rheumatoid arthritis without rheumatoid factor, unspecified site (principal)
CPT/HCPCS: 80076; 82565; 85025; 85651; 96413; A4222; J7050; Q5121

== ENCOUNTER 2023-11-06 11:57 | Oncology outpatient (recurring) (ONCR) | payer MEDICARE, SELFPAY ==
[2023-11-06 12:38] VITALS: BP 128/63; PULSE 63; RESP 18; TEMP 36.2; O2SAT 92
[2023-11-06] MEDS: SODIUM CHLORIDE 0.9% IV (12:44)
[2023-11-06] MEDS: INFLIXIMAB AXXQ IV (12:44)
--- NOTE | 2023-11-06 12:49 | PC.NURSE ---
Patient request to get her Infliximab over 1 hour and states she has always received drug over one hour. Documentation history shows patient has received over an hour and order from June states to give medication over one hour per patient request. Patient states she is aware of the risks when it comes to going against recommended administration rates.
[2023-11-06 13:06] LABS: Basophils % 0.4 %; Eosinophils # 0.1 10^3/uL (0.0-0.8); Eosinophils % 1.6 %; Hematocrit 39.3 % (36-47); Lymphocytes # 2.4 10^3/uL (0.8-4.8); Lymphocytes % 31.9 %; Mean Corpuscular HGB Conc 32.8 g/dL (30-55); Mean Corpuscular Hemoglobin 32.8 pg (27-33); Mean Platelet Volume 9.8 fL (7.4-10.4); Monocytes # 0.7 10^3/uL (0.2-0.9); Monocytes % 8.8 %; Neutrophils # 4.36 10^3/uL (1.8-7.7); Neutrophils % 57.2 %; Nucleated Red Blood Cells % 0 %; Platelet Count 237 10^3/cmm (157-399); Red Blood Count 3.93 10^6/uL (3.85-5.65); Red Cell Distribution Width 12.9 % (12.1-15.1); White Blood Count 7.62 10^3/uL (3.29-11.43)
[2023-11-06 13:34] LABS: Alanine Aminotransferase 17 U/L (0-33); Albumin Level 3.7 g/dL (3.5-5.2); Alkaline Phosphatase 70 U/L (35-105); Creatinine Clr Calc Pharmacy 48.3573; Total Bilirubin 0.5 mg/dL (0.15-1.2); Total Protein 7.7 g/dL (6.6-8.7)
[2023-11-06 13:47] VITALS: BP 152/75; PULSE 56; RESP 18; TEMP 36.4; O2SAT 97
[2023-11-06 13:47] LABS: Erythrocyte Sedimentation Rate 25 mm/hr (0-15)
[2023-11-06 13:48] LABS: Aspartate Amino Transferase 34 U/L (0-32)
== END 2023-11-17 23:59 | disposition home or self-care (01) ==
PROVIDERS: Internal Medicine Rheumatology; PCP Family Medicine; Visit Provider Family Medicine
DX: M06.00 Rheumatoid arthritis without rheumatoid factor, unspecified site (principal)
CPT/HCPCS: 80076; 82565; 85025; 85651; 96413; A4222; J7050; Q5121

== ENCOUNTER 2024-01-01 12:12 | Oncology outpatient (recurring) (ONCR) | payer MEDICARE, SELFPAY ==
[2024-01-01 12:58] VITALS: BP 151/81; PULSE 60; RESP 16; TEMP 36.4; O2SAT 97
[2024-01-01 13:22] LABS: Basophils # 0.1 10^3/uL (0.0-0.1); Basophils % 0.8 %; Eosinophils # 0.1 10^3/uL (0.0-0.8); Eosinophils % 1.9 %; Hematocrit 39.6 % (36-47); Lymphocytes # 2.9 10^3/uL (0.8-4.8); Lymphocytes % 40.3 %; Mean Corpuscular HGB Conc 32.8 g/dL (30-55); Mean Corpuscular Hemoglobin 32.6 pg (27-33); Mean Corpuscular Volume 99.2 fl (85-98); Mean Platelet Volume 10.2 fL (7.4-10.4); Monocytes # 0.6 10^3/uL (0.2-0.9); Monocytes % 8.2 %; Neutrophils # 3.49 10^3/uL (1.8-7.7); Neutrophils % 48.7 %; Nucleated Red Blood Cells % 0 %; Platelet Count 188 10^3/cmm (157-399); Red Blood Count 3.99 10^6/uL (3.85-5.65); Red Cell Distribution Width 13.3 % (12.1-15.1); White Blood Count 7.19 10^3/uL (3.29-11.43)
[2024-01-01 13:25] LABS: Erythrocyte Sedimentation Rate 13 mm/hr (0-15)
[2024-01-01] MEDS: INFLIXIMAB AXXQ IV (13:38)
[2024-01-01] MEDS: SODIUM CHLORIDE 0.9% IV (13:38)
[2024-01-01 13:44] LABS: Alanine Aminotransferase 12 U/L (0-33); Alkaline Phosphatase 68 U/L (35-105); Aspartate Amino Transferase 26 U/L (0-32); Globulin 3.8 g/dL (1.3-4.6); Total Bilirubin 0.6 mg/dL (0.15-1.2); Total Protein 7.8 g/dL (6.6-8.7)
[2024-01-01 14:56] VITALS: BP 160/72; PULSE 68; RESP 16; TEMP 36.6; O2SAT 94
== END 2024-01-17 23:59 | disposition home or self-care (01) ==
PROVIDERS: Internal Medicine Rheumatology; PCP Family Medicine; Visit Provider Family Medicine
DX: M06.00 Rheumatoid arthritis without rheumatoid factor, unspecified site (principal)
CPT/HCPCS: 80076; 82565; 85025; 85651; 96413; A4222; J7050; Q5121

== ENCOUNTER 2024-02-26 12:14 | Oncology outpatient (recurring) (ONCR) | payer MEDICARE, SELFPAY ==
[2024-02-26 13:08] LABS: Basophils % 0.5 %; Eosinophils # 0.2 10^3/uL (0.0-0.8); Eosinophils % 1.9 %; Lymphocytes # 2.3 10^3/uL (0.8-4.8); Lymphocytes % 29.6 %; Mean Corpuscular Hemoglobin 32.4 pg (27-33); Mean Corpuscular Volume 98.3 fl (85-98); Mean Platelet Volume 9.9 fL (7.4-10.4); Monocytes # 0.6 10^3/uL (0.2-0.9); Monocytes % 7.8 %; Neutrophils # 4.65 10^3/uL (1.8-7.7); Neutrophils % 59.8 %; Nucleated Red Blood Cells % 0 %; Platelet Count 211 10^3/cmm (157-399); Red Blood Count 4.07 10^6/uL (3.85-5.65); Red Cell Distribution Width 13.2 % (12.1-15.1); White Blood Count 7.78 10^3/uL (3.29-11.43)
[2024-02-26 13:12] LABS: Erythrocyte Sedimentation Rate 14 mm/hr (0-15)
[2024-02-26 13:31] LABS: Alanine Aminotransferase 12 U/L (0-33); Albumin Level 3.8 g/dL (3.5-5.2); Alkaline Phosphatase 70 U/L (35-105); Aspartate Amino Transferase 24 U/L (0-32); Creatinine Clr Calc Pharmacy 47.8348; Globulin 3.6 g/dL (1.3-4.6); Total Bilirubin 0.4 mg/dL (0.15-1.2); Total Protein 7.4 g/dL (6.6-8.7)
[2024-02-26] MEDS: INFLIXIMAB AXXQ IV (13:38)
[2024-02-26] MEDS: SODIUM CHLORIDE 0.9% IV (13:38)
[2024-02-26 14:42] VITALS: BP 173/90; PULSE 58; TEMP 36.8; O2SAT 98
== END 2024-03-18 23:59 | disposition home or self-care (01) ==
PROVIDERS: Internal Medicine Rheumatology; PCP Family Medicine; Visit Provider Family Medicine
DX: M19.90 Unspecified osteoarthritis, unspecified site (principal); Z79.899 Other long term (current) drug therapy
CPT/HCPCS: 80076; 82565; 85025; 85651; 96413; A4222; J7050; Q5121

== ENCOUNTER 2024-04-22 12:11 | Oncology outpatient (recurring) (ONCR) | payer MEDICARE, SELFPAY ==
[2024-04-22 12:25] VITALS: BP 145/62; PULSE 54; RESP 16; TEMP 36.1; O2SAT 95
[2024-04-22 12:40] LABS: Basophils # 0.1 10^3/uL (0.0-0.1); Basophils % 0.8 %; Eosinophils # 0.2 10^3/uL (0.0-0.8); Eosinophils % 2.2 %; Hematocrit 39.1 % (36-47); Lymphocytes # 2.7 10^3/uL (0.8-4.8); Lymphocytes % 36.3 %; Mean Corpuscular HGB Conc 32.5 g/dL (30-55); Mean Corpuscular Hemoglobin 32.1 pg (27-33); Mean Corpuscular Volume 98.7 fl (85-98); Mean Platelet Volume 10.1 fL (7.4-10.4); Monocytes # 0.6 10^3/uL (0.2-0.9); Monocytes % 7.5 %; Neutrophils # 3.87 10^3/uL (1.8-7.7); Neutrophils % 53.1 %; Nucleated Red Blood Cells % 0 %; Platelet Count 230 10^3/cmm (157-399); Red Blood Count 3.96 10^6/uL (3.85-5.65); Red Cell Distribution Width 13.3 % (12.1-15.1)
[2024-04-22 12:46] LABS: Erythrocyte Sedimentation Rate 12 mm/hr (0-15)
[2024-04-22 12:59] LABS: Alanine Aminotransferase 14 U/L (0-33); Albumin Level 3.9 g/dL (3.5-5.2); Alkaline Phosphatase 72 U/L (35-105); Aspartate Amino Transferase 25 U/L (0-32); Creatinine Clr Calc Pharmacy 42.6563; Globulin 2.9 g/dL (1.3-4.6); Total Bilirubin 0.5 mg/dL (0.15-1.2); Total Protein 6.8 g/dL (6.6-8.7)
[2024-04-22] MEDS: SODIUM CHLORIDE 0.9% IV (13:00)
[2024-04-22] MEDS: INFLIXIMAB AXXQ IV (13:00)
[2024-04-22 14:16] VITALS: BP 151/72; PULSE 56; RESP 16; TEMP 36.8; O2SAT 98
== END 2024-05-18 23:59 | disposition home or self-care (01) ==
PROVIDERS: Internal Medicine Rheumatology; PCP Family Medicine; Visit Provider Family Medicine
DX: M06.00 Rheumatoid arthritis without rheumatoid factor, unspecified site; Z79.899 Other long term (current) drug therapy
CPT/HCPCS: 80076; 82565; 85025; 85651; 96413; J7050; Q5121

== ENCOUNTER → 2024-05-29 14:36 | Outpatient (BNVA) | payer MEDICARE, SELFPAY | PROVIDERS: PCP Family Medicine; Visit Provider Internal Medicine | DX: I34.0 Nonrheumatic mitral (valve) insufficiency (principal); I50.30 Unspecified diastolic (congestive) heart failure | CPT/HCPCS: 99214 ==

== ENCOUNTER 2024-07-29 12:05 | Oncology outpatient (recurring) (ONCR) | payer MEDICARE, OTHER, SELFPAY ==
[2024-07-29 12:28] VITALS: BP 113/66; PULSE 53; RESP 16; TEMP 36.2; O2SAT 95
[2024-07-29 12:32] LABS: Basophils % 0.4 %; Eosinophils # 0.1 10^3/uL (0.0-0.8); Eosinophils % 1.8 %; Lymphocytes % 25.4 %; Mean Corpuscular HGB Conc 33.1 g/dL (30-55); Mean Corpuscular Volume 96.4 fl (85-98); Mean Platelet Volume 9.7 fL (7.4-10.4); Monocytes # 0.6 10^3/uL (0.2-0.9); Monocytes % 7.6 %; Neutrophils # 4.96 10^3/uL (1.8-7.7); Neutrophils % 64.7 %; Nucleated Red Blood Cells % 0 %; Platelet Count 228 10^3/cmm (157-399); Red Blood Count 3.63 10^6/uL (3.85-5.65); Red Cell Distribution Width 12.9 % (12.1-15.1); White Blood Count 7.67 10^3/uL (3.29-11.43)
[2024-07-29 12:49] LABS: Erythrocyte Sedimentation Rate 21 mm/hr (0-15)
[2024-07-29 12:59] LABS: Alanine Aminotransferase 12 U/L (0-33); Albumin Level 3.5 g/dL (3.5-5.2); Alkaline Phosphatase 66 U/L (35-105); Globulin 3.9 g/dL (1.3-4.6); Total Bilirubin 0.4 mg/dL (0.15-1.2); Total Protein 7.4 g/dL (6.6-8.7)
[2024-07-29 13:05] LABS: Aspartate Amino Transferase 27 U/L (0-32)
[2024-07-29] MEDS: INFLIXIMAB AXXQ IV (13:12)
[2024-07-29] MEDS: SODIUM CHLORIDE 0.9% IV (13:12)
[2024-07-29 14:26] VITALS: BP 138/64; PULSE 57; RESP 16; TEMP 36.8; O2SAT 98
== END 2024-08-16 23:59 | disposition home or self-care (01) ==
PROVIDERS: Internal Medicine Rheumatology; PCP Family Medicine; Visit Provider Family Medicine
DX: M06.00 Rheumatoid arthritis without rheumatoid factor, unspecified site (principal); Z79.899 Other long term (current) drug therapy
CPT/HCPCS: 80076; 82565; 85025; 85651; 96413; A4222; J7050; Q5121

== ENCOUNTER 2024-09-23 12:06 | Oncology outpatient (recurring) (ONCR) | payer MEDICARE, SELFPAY ==
[2024-09-23 12:28] VITALS: BP 141/62; PULSE 66; RESP 18; TEMP 36.2; O2SAT 97
[2024-09-23 12:43] LABS: Basophils % 0.4 %; Eosinophils # 0.1 10^3/uL (0.0-0.8); Eosinophils % 1.6 %; Lymphocytes # 2.4 10^3/uL (0.8-4.8); Lymphocytes % 34.8 %; Mean Corpuscular HGB Conc 32.5 g/dL (30-55); Mean Corpuscular Hemoglobin 30.5 pg (27-33); Mean Corpuscular Volume 93.8 fl (85-98); Mean Platelet Volume 9.8 fL (7.4-10.4); Monocytes # 0.6 10^3/uL (0.2-0.9); Monocytes % 9.2 %; Neutrophils # 3.76 10^3/uL (1.8-7.7); Neutrophils % 53.9 %; Nucleated Red Blood Cells % 0 %; Platelet Count 242 10^3/cmm (157-399); Red Blood Count 3.84 10^6/uL (3.85-5.65); Red Cell Distribution Width 12.7 % (12.1-15.1); White Blood Count 6.98 10^3/uL (3.29-11.43)
[2024-09-23 12:51] LABS: Erythrocyte Sedimentation Rate 18 mm/hr (0-15)
[2024-09-23] MEDS: SODIUM CHLORIDE 0.9% IV (12:57)
[2024-09-23] MEDS: INFLIXIMAB AXXQ IV (12:57)
[2024-09-23 13:04] LABS: Alanine Aminotransferase 12 U/L (0-33); Albumin Level 3.9 g/dL (3.5-5.2); Alkaline Phosphatase 62 U/L (35-105); Aspartate Amino Transferase 26 U/L (0-32); Globulin 3.4 g/dL (1.3-4.6); Total Bilirubin 0.5 mg/dL (0.15-1.2); Total Protein 7.3 g/dL (6.6-8.7)
[2024-09-23 14:09] VITALS: BP 150/90; PULSE 53; RESP 17; TEMP 36.7; O2SAT 93
== END 2024-10-16 23:59 | disposition home or self-care (01) ==
PROVIDERS: Internal Medicine Rheumatology; PCP Family Medicine; Visit Provider Family Medicine
DX: M06.00 Rheumatoid arthritis without rheumatoid factor, unspecified site (principal); Z79.899 Other long term (current) drug therapy
CPT/HCPCS: 80076; 82565; 85025; 85651; 96413; A4222; J7050; Q5121

== ENCOUNTER 2024-11-18 12:42 | Oncology outpatient (recurring) (ONCR) | payer MEDICARE, SELFPAY ==
[2024-11-18] MEDS: SODIUM CHLORIDE 0.9% IV (14:16)
[2024-11-18] MEDS: INFLIXIMAB AXXQ IV (14:16)
[2024-11-18 14:20] VITALS: BP 157/74; PULSE 55; RESP 17; TEMP 36.3; O2SAT 98
[2024-11-18 14:21] LABS: Basophils % 0.6 %; Eosinophils # 0.1 10^3/uL (0.0-0.8); Eosinophils % 1.7 %; Hematocrit 36.9 % (36-47); Lymphocytes # 2.3 10^3/uL (0.8-4.8); Lymphocytes % 33.4 %; Mean Corpuscular HGB Conc 31.7 g/dL (30-55); Mean Corpuscular Hemoglobin 29.6 pg (27-33); Mean Corpuscular Volume 93.4 fl (85-98); Mean Platelet Volume 10.7 fL (7.4-10.4); Monocytes # 0.6 10^3/uL (0.2-0.9); Monocytes % 9.3 %; Neutrophils # 3.78 10^3/uL (1.8-7.7); Neutrophils % 54.9 %; Nucleated Red Blood Cells % 0 %; Platelet Count 228 10^3/cmm (157-399); Red Blood Count 3.95 10^6/uL (3.85-5.65); Red Cell Distribution Width 14.3 % (12.1-15.1); White Blood Count 6.89 10^3/uL (3.29-11.43)
[2024-11-18 14:25] LABS: Erythrocyte Sedimentation Rate 29 mm/hr (0-15)
[2024-11-18 14:36] LABS: Alanine Aminotransferase 14 U/L (0-33); Albumin Level 3.8 g/dL (3.5-5.2); Alkaline Phosphatase 65 U/L (35-105); Aspartate Amino Transferase 29 U/L (0-32); Globulin 3.6 g/dL (1.3-4.6); Total Bilirubin 0.4 mg/dL (0.15-1.2); Total Protein 7.4 g/dL (6.6-8.7)
[2024-11-18 15:25] VITALS: BP 165/74; PULSE 56; RESP 18; TEMP 36.8; O2SAT 95
== END 2024-12-16 23:59 | disposition home or self-care (01) ==
PROVIDERS: Internal Medicine Rheumatology; PCP Family Medicine; Visit Provider Family Medicine
DX: Z53.9 Procedure and treatment not carried out, unspecified reason; M06.00 Rheumatoid arthritis without rheumatoid factor, unspecified site; Z79.899 Other long term (current) drug therapy; M19.90 Unspecified osteoarthritis, unspecified site
CPT/HCPCS: 80076; 82565; 85025; 85651; 96413; A4222; J7050; Q5121

== ENCOUNTER 2025-01-13 12:43 | Oncology outpatient (recurring) (ONCR) | payer MEDICARE, SELFPAY ==
[2025-01-13 13:55] LABS: Hematocrit 37.2 % (36-47); Hemoglobin 11.80 g/dL (11.27-16.99); Mean Corpuscular HGB Conc 31.7 g/dL (30-55); Mean Corpuscular Hemoglobin 30.1 pg (27-33); Mean Corpuscular Volume 94.9 fl (85-98); Nucleated Red Blood Cells % 0 %; Platelet Count 197 10^3/cmm (157-399); Red Blood Count 3.92 10^6/uL (3.85-5.65); White Blood Count 5.89 10^3/uL (3.29-11.43)
[2025-01-13 14:06] VITALS: BP 130/68; PULSE 65; RESP 17; TEMP 36.9; O2SAT 98
[2025-01-13 14:09] LABS: Alanine Aminotransferase 16 U/L (0-33); Albumin Level 3.7 g/dL (3.5-5.2); Alkaline Phosphatase 69 U/L (35-105); Aspartate Amino Transferase 32 U/L (0-32); Globulin 3.8 g/dL (1.3-4.6); Total Protein 7.5 g/dL (6.6-8.7)
[2025-01-13] MEDS: INFLIXIMAB AXXQ IV (14:12)
[2025-01-13] MEDS: SODIUM CHLORIDE 0.9% IV (14:12)
[2025-01-13 15:18] VITALS: BP 159/67; PULSE 58; RESP 18; TEMP 36.8; O2SAT 96
== END 2025-01-16 23:59 | disposition home or self-care (01) ==
LOC: ONCMED 12:44
PROVIDERS: Internal Medicine Rheumatology; PCP Family Medicine; Visit Provider Family Medicine
DX: M06.00 Rheumatoid arthritis without rheumatoid factor, unspecified site (principal); Z79.899 Other long term (current) drug therapy; M02.30 Reiter's disease, unspecified site
CPT/HCPCS: 80076; 82565; 85025; 85651; 96413; A4222; J7050; Q5121

== ENCOUNTER 2025-03-31 09:53 | Oncology outpatient (recurring) (ONCR) | payer MEDICARE, SELFPAY ==
[2025-03-31 10:16] VITALS: BP 135/74; PULSE 75; RESP 18; TEMP 36.9; O2SAT 96
[2025-03-31 10:39] LABS: Hematocrit 36.3 % (36-47); Hemoglobin 11.80 g/dL (11.27-16.99); Mean Corpuscular HGB Conc 32.5 g/dL (30-55); Mean Corpuscular Hemoglobin 30.7 pg (27-33); Mean Corpuscular Volume 94.5 fl (85-98); Nucleated Red Blood Cells % 0 %; Platelet Count 240 10^3/cmm (157-399); Red Blood Count 3.84 10^6/uL (3.85-5.65); White Blood Count 6.00 10^3/uL (3.29-11.43)
[2025-03-31 10:51] LABS: Alanine Aminotransferase 10 U/L (0-33); Albumin Level 3.8 g/dL (3.5-5.2); Alkaline Phosphatase 68 U/L (35-105); Aspartate Amino Transferase 24 U/L (0-32); Creatinine Clr Calc Pharmacy 46.7718; Globulin 3.9 g/dL (1.3-4.6); Total Protein 7.7 g/dL (6.6-8.7)
[2025-03-31] MEDS: INFLIXIMAB AXXQ IV (11:20)
[2025-03-31] MEDS: SODIUM CHLORIDE 0.9% IV (11:20)
[2025-03-31 12:27] VITALS: BP 188/76; PULSE 65; RESP 16; TEMP 36.4; O2SAT 97
== END 2025-04-18 23:59 | disposition home or self-care (01) ==
PROVIDERS: Internal Medicine Rheumatology; PCP Family Medicine; Visit Provider Family Medicine
DX: M06.00 Rheumatoid arthritis without rheumatoid factor, unspecified site (principal); Z79.899 Other long term (current) drug therapy
CPT/HCPCS: 80076; 82565; 85025; 85651; 86140; 96413; A4222; J7050; Q5121

== ENCOUNTER → 2025-04-30 12:22 | Outpatient (BNVA) | payer MEDICARE, SELFPAY | PROVIDERS: PCP Family Medicine; Visit Provider Internal Medicine | DX: I34.0 Nonrheumatic mitral (valve) insufficiency (principal); I50.30 Unspecified diastolic (congestive) heart failure | CPT/HCPCS: 99214 ==

== ENCOUNTER → 2025-05-06 12:29 | Outpatient (BNVA) | payer MEDICARE, SELFPAY | PROVIDERS: PCP Family Medicine; Visit Provider Internal Medicine Rheumatology | DX: H20.9 Unspecified iridocyclitis (principal); Z79.899 Other long term (current) drug therapy; M06.00 Rheumatoid arthritis without rheumatoid factor, unspecified site; Z71.85 Encounter for immunization safety counseling; Z96.642 Presence of left artificial hip joint; Z98.890 Other specified postprocedural states | CPT/HCPCS: 99214 ==

== ENCOUNTER 2025-05-26 09:57 | Oncology outpatient (recurring) (ONCR) | payer MEDICARE, SELFPAY ==
[2025-05-26 10:11] VITALS: BP 165/77; PULSE 58; TEMP 36.4; O2SAT 95
[2025-05-26 10:27] LABS: Hematocrit 36.1 % (36-47); Hemoglobin 11.80 g/dL (11.27-16.99); Mean Corpuscular HGB Conc 32.7 g/dL (30-55); Mean Corpuscular Hemoglobin 31.1 pg (27-33); Mean Corpuscular Volume 95.3 fl (85-98); Nucleated Red Blood Cells % 0 %; Platelet Count 281 10^3/cmm (157-399); Red Blood Count 3.79 10^6/uL (3.85-5.65); White Blood Count 7.24 10^3/uL (3.29-11.43)
[2025-05-26] MEDS: infliximab-abda 800 MG in sodium chloride 0.9% 150 ML 230 MG IV (10:46)
[2025-05-26 10:48] LABS: Alanine Aminotransferase 12 U/L (0-33); Albumin Level 3.8 g/dL (3.5-5.2); Alkaline Phosphatase 82 U/L (35-105); Aspartate Amino Transferase 24 U/L (0-32); Globulin 4.2 g/dL (1.3-4.6); Total Protein 8.0 g/dL (6.6-8.7)
[2025-05-26 11:57] VITALS: BP 150/76; PULSE 65
== END 2025-06-18 23:59 | disposition home or self-care (01) ==
PROVIDERS: Internal Medicine Rheumatology; PCP Family Medicine; Visit Provider Family Medicine
DX: M06.00 Rheumatoid arthritis without rheumatoid factor, unspecified site (principal); Z79.899 Other long term (current) drug therapy
CPT/HCPCS: 80076; 82565; 85025; 85651; 86140; 96413; A4222; Q5104